=== PATIENT | female | born 1970 | race Caucasian/White ===

== ENCOUNTER 2017-10-30 21:13 | Emergency (ER) | payer SELFPAY ==
[~2017-10-30] VITALS: Ht 157.5 cm; Wt 57.0 kg
[2017-10-31] MEDS ORDERED: IPRATROPIUM/ALBUTEROL 0.5-3(2.5)MG/3ML NEB HHN ONE (03:00)
[2017-10-31 03:44] VITALS: BP 148/89
== END 2017-10-31 03:44 | disposition home or self-care (01) ==
LOC: ER 21:13
DX: J18.9 Pneumonia, unspecified organism (principal)
CPT/HCPCS: 71045; 81025; 93005; 94640; 99284; J7620